=== PATIENT | female | born 1975 | race American Indian/Alaskan Native ===

== ENCOUNTER 2019-12-08 20:39 | Emergency (ER) | payer OTHER ==
[2019-12-08] MEDS ORDERED: SODIUM CHLORIDE 0.9% 1000 ML 1,000 ML IV ONE (21:04)
--- NOTE | 2019-12-08 21:11 | Emergency Department Report ---
HPI - General Chief Complaint: Dyspnea/Respdistress Time Seen by Provider: 12/08/19 20:50 - HPI HPI: Room 23 The patient is a 44-year-old female present with a chief complaint of shortness of breath. Patient states she was in her usual state of health until just prior to arrival when she began to feel short of breath. Patient denies chest pain or pleurisy. Patient denies fever or cough. Patient denies any recent flights or long car trips. EMS was called and found the patient to be tachycardic. The patient was noted to sat at 96% on room air. Patient was transferred to the ED for further evaluation. Patient currently has no complaints ED Past Medical Hx - Past Medical History Previous Medical History?: No - Surgical History Past Surgical History?: No - Family History Family history: no significant - Social History Smoking Status: Never Smoker Substance Use Type: None (Patient denies illicit drug use) - Medications Home Medications: Home Medications Medication Instructions Recorded Confirmed Last Taken Type Albuterol INH(or & Nicu Only) 2 puff IH QID PRN #8.5 gram 12/08/19 Unknown Rx [ProAir HFA Inhaler] ED Review of Systems ROS: Stated complaint: SHORTNESS OF BREATH Other details as noted in HPI Constitutional: denies: fever Eyes: denies: eye pain ENT: denies: throat pain Respiratory: shortness of breath Cardiovascular: denies: chest pain Endocrine: no symptoms reported Gastrointestinal: denies: nausea, vomiting Genitourinary: denies: dysuria Musculoskeletal: denies: back pain Neurological: denies: headache Physical Exam - Physical Exam Vital Signs: Vital Signs 12/08/19 20:55 Temperature 98.8 F Pulse Rate 108 H Respiratory 21 Rate Blood Pressure 145/88 [Right] O2 Sat by Pulse 100 Oximetry Vital Signs 12/08/19 12/08/19 12/08/19 20:55 21:00 21:04 Temperature 98.8 F Pulse Rate 108 H 108 H Respiratory 21 20 20 Rate Blood Pressure 144/74 Blood Pressure 145/88 [Right] O2 Sat by Pulse 100 100 100 Oximetry 12/08/19 12/08/19 12/08/19 21:27 21:30 21:45 Temperature Pulse Rate 105 H 111 H 98 H Respiratory 17 25 H 17 Rate Blood Pressure 144/74 154/86 141/77 Blood Pressure [Right] O2 Sat by Pulse 100 100 Oximetry 12/08/19 12/08/19 22:00 22:15 Temperature Pulse Rate 88 88 Respiratory 22 15 Rate Blood Pressure 136/69 136/78 Blood Pressure [Right] O2 Sat by Pulse 99 98 Oximetry Physical Exam: GENERAL: The patient is well-developed well-nourished female sitting on stretcher not appearing to be in acute distress. [] HEENT: Normocephalic. Atraumatic. Extraocular motions are intact. Patient has moist mucous membranes. NECK: Supple. Trachea midline CHEST/LUNGS: Clear to auscultation. There is no respiratory distress noted. HEART/CARDIOVASCULAR: Regular. There is tachycardia. There is no gallop rub or murmur. ABDOMEN: Abdomen is soft, nontender. Patient has normal bowel sounds. There is no abdominal distention. SKIN: There is no rash. There is no edema. There is no diaphoresis. NEURO: The patient is awake, alert, and oriented. The patient is cooperative. The patient has normal speech MUSCULOSKELETAL:There is no evidence of acute injury. ED Course Vital Signs 12/08/19 20:55 Temperature 98.8 F Pulse Rate 108 H Respiratory 21 Rate Blood Pressure 145/88 [Right] O2 Sat by Pulse 100 Oximetry ED Medical Decision Making - Lab Data Result diagrams: 12/08/19 21:28 12/08/19 21:28 Laboratory Tests 12/08/19 12/08/19 12/08/19 21:28 21:28 21:28 WBC 5.6 RBC 3.82 Hgb 12.2 Hct 35.5 MCV 93 MCH 32 MCHC 34 RDW 13.0 L Plt Count 350 Lymph % (Auto) 25.0 [place] % (Auto) 10.7 H Eos % (Auto) 0.3 Baso % (Auto) 1.1 Lymph # 1.4 [place] # 0.6 Eos # 0.0 Baso # 0.1 Seg Neutrophils % 62.9 Seg Neutrophils # 3.5 D-Dimer < 135.00 Sodium 135 L Potassium 3.1 L Chloride 99.6 Carbon Dioxide 20 L Anion Gap 19 BUN 9 Creatinine 0.6 L Estimated GFR > 60 BUN/Creatinine Ratio 15 Glucose 183 H Calcium 9.0 Total Bilirubin 0.50 AST 22 ALT 12 Alkaline Phosphatase 49 Total Creatine Kinase 122 CK-MB (CK-2) 1.7 CK-MB (CK-2) Rel Index 1.3 Troponin T < 0.010 NT-Pro-B Natriuret Pep 28.32 Total Protein 7.7 Albumin 4.3 Albumin/Globulin Ratio 1.3 TSH Free T4 HCG, Qual Urine Opiates Screen Urine Methadone Screen Ur Barbiturates Screen Ur Phencyclidine Scrn Ur Amphetamines Screen U Benzodiazepines Scrn Urine Cocaine Screen U Marijuana (THC) Screen Drugs of Abuse Note 12/08/19 12/08/19 12/08/19 21:28 21:28 21:30 WBC RBC Hgb Hct MCV MCH MCHC RDW Plt Count Lymph % (Auto) [place] % (Auto) Eos % (Auto) Baso % (Auto) Lymph # [place] # Eos # Baso # Seg Neutrophils % Seg Neutrophils # D-Dimer Sodium Potassium Chloride Carbon Dioxide Anion Gap BUN Creatinine Estimated GFR BUN/Creatinine Ratio Glucose Calcium Total Bilirubin AST ALT Alkaline Phosphatase Total Creatine Kinase CK-MB (CK-2) CK-MB (CK-2) Rel Index Troponin T NT-Pro-B Natriuret Pep Total Protein Albumin Albumin/Globulin Ratio TSH 5.640 H Free T4 1.34 HCG, Qual Negative Urine Opiates Screen Presumptive negative Urine Methadone Screen Presumptive negative Ur Barbiturates Screen Presumptive negative Ur Phencyclidine Scrn Presumptive negative Ur Amphetamines Screen Presumptive negative U Benzodiazepines Scrn Presumptive negative Urine Cocaine Screen Presumptive negative U Marijuana (THC) Screen Presumptive negative Drugs of Abuse Note Disclamer - EKG Data -: EKG Interpreted by Me EKG shows normal: sinus rhythm Rate: tachycardia (106 bpm) - EKG Data When compared to previous EKG there are: previous EKG unavailable Interpretation: nonspecific ST-T wave mac - Radiology Data Radiology results: image reviewed (Chest x-ray) interpreted by me: Chest x-ray-no focal infiltrates, no pneumothorax Findings [facility] [address] [place] [address] XRay Report Signed Patient: RADHA SUÁREZ MR#: [id number] : 1975 Acct:[id number] Age/Sex: 44 / F ADM Date: 12/08/19 Loc: ED Attending Dr: Ordering Physician: FANNY KUMAR MD Date of Service: 12/08/19 Procedure(s): XR chest routine 2V Accession Number(s): [id number] cc: FANNY KUMAR MD Fluoro Time In Minutes: CHEST 2 VIEWS INDICATION / CLINICAL INFORMATION: sob. COMPARISON: None available. FINDINGS: SUPPORT DEVICES: None. HEART / MEDIASTINUM: No significant abnormality. LUNGS / PLEURA: No significant pulmonary or pleural abnormality. No pneumothorax. ADDITIONAL FINDINGS: No significant additional findings. IMPRESSION: 1. No acute findings. Signer Name: Ernesto Pereira MD Signed: 12/08/2019 9:38 PM Workstation Name: [id number] Transcribed By: RIAN Dictated By: Ernesto Pereira MD Electronically Authenticated By: Ernesto Pereira MD Signed Date/Time: 12/08/192137 DD/ 36 TD/TT: - Medical Decision Making Patient's work-up negative patient has normal SPO2 on room air. - Differential Diagnosis Anxiety, hyperthyroidism, PE, pneumonia Critical care attestation.: If time is entered above; I have spent that time in minutes in the direct care of this critically ill patient, excluding procedure time. ED Disposition Clinical Impression: Shortness of breath, Hypokalemia Disposition: DC-01 TO HOME OR SELFCARE Is pt being admited?: No Does the pt Need Aspirin: No Condition: Stable Instructions: Dyspnea (ED) Additional Instructions: Return to the emergency department should you develop worsening symptoms, inability to tolerate food or liquids, high fever or any other concerns Prescriptions: Albuterol INH(or & Nicu Only) [ProAir HFA Inhaler] 2 puff IH QID PRN #8.5 gram PRN Reason: Shortness Of Breath Referrals: [facility] [Provider Group] - [place] Time of Disposition: 22:31
[2019-12-08 21:42] LABS: Basophils # (Auto) 0.1 K/mm3 (0.0-0.1); Basophils % (Auto) 1.1 % (0.0-1.8); Eosinophils % (Auto) 0.3 % (0.0-4.3); Hematocrit 35.5 % (30.3-42.9); Hemoglobin 12.2 gm/dl (10.1-14.3); Lymphocytes # (Auto) 1.4 K/mm3 (1.2-5.4); Mean Corpuscular HGB Conc 34 % (30-34); Mean Corpuscular Volume 93 fl (79-97); Monocytes # (Auto) 0.6 K/mm3 (0.0-0.8); Monocytes % (Auto) 10.7 % (0.0-7.3); Platelet Count 350 K/mm3 (140-440); Red Blood Count 3.82 M/mm3 (3.65-5.03)
--- NOTE | 2019-12-08 21:42 | XRay Report ---
CHEST 2 VIEWS INDICATION / CLINICAL INFORMATION: sob. COMPARISON: None available. FINDINGS: SUPPORT DEVICES: None. HEART / MEDIASTINUM: No significant abnormality. LUNGS / PLEURA: No significant pulmonary or pleural abnormality. No pneumothorax. ADDITIONAL FINDINGS: No significant additional findings. IMPRESSION: 1. No acute findings. Signer Name: Ernesto Preeira MD Signed: 12/08/2019 9:38 PM Workstation Name: [id number]
[2019-12-08 21:55] LABS: Amphetamine Screen,Urine PRESUMPTIVE NEGATIVE; Benzodiazepines Screen,Urine PRESUMPTIVE NEGATIVE; Cannabinoid Screen,Urine PRESUMPTIVE NEGATIVE; Cocaine Screen,Urine PRESUMPTIVE NEGATIVE; Methadone Screen,Urine PRESUMPTIVE NEGATIVE; Opiate Screen,Urine PRESUMPTIVE NEGATIVE
[2019-12-08 22:02] LABS: Creatine Kinase MB 1.7 ng/mL (0.0-4.0)
[2019-12-08 22:05] LABS: Alanine Aminotransferase 12 units/L (7-56); Albumin 4.3 g/dL (3.9-5); BUN/Creatinine Ratio 15; Blood Urea Nitrogen 9 mg/dL (7-17); Hemolysis Index 6
[2019-12-08 22:12] LABS: Free T4 (Free Thyroxine) 1.34 ng/dL (0.76-1.46)
[2019-12-08] MEDS ORDERED: POTASSIUM CHLORIDE ER 20 MEQ TAB PO ONE (22:17)
[2019-12-08 22:19] VITALS: BP 136/78
[2019-12-08] MEDS ORDERED: IPRATROPIUM/ALBUTEROL SULFATE 3 ML AMPUL.NEB IH ONE (22:22)
== END 2019-12-08 23:12 | disposition home or self-care (01) ==
LOC: ED 20:39
DX: E87.6 Hypokalemia (principal); R06.02 Shortness of breath; Z79.899 Other long term (current) drug therapy; Z88.0 Allergy status to penicillin
CPT/HCPCS: 36415; 71046; 80053; 80307; 82550; 82553; 83880; 84439; 84443; 84484; 84703; 85025; 85379; 93005; 93010; 94640; 94644